=== PATIENT | female | born 1965 | race Caucasian/White ===

== ENCOUNTER 2025-02-04 08:16 | Outpatient (CLI) | payer OTHER, SELFPAY ==
--- NOTE | ~2025-02-04 | MR_ITS ---
MRI of the right shoulder Technique: Axial proton-density fat-sat images, coronal proton density fat-sat and T2 fat-sat images, and sagittal T1-weighted and T2 fat-sat images were acquired. Clinical History: Pain Findings: There is moderate AC joint degenerative change. Coracoclavicular, coracoacromial, and corac ohumeral ligaments appear intact. Supraspinatus and infraspinatus tendons are intact with moderate to advanced tendinosis. Subscapulari s tendon is intact, with mild tendinosis. Tendon of long head of the biceps is intact. There is probable degenerative superior labral tear, probably extending to the anterosuperior portion . Inferior glenohumeral ligament is intact. No degenerative change or effusion of the glenohumeral join t. There is minimal fluid in the subacromial/subdeltoid bursa. No muscle atrophy or edema. Impression: Probable degenerative superior labral tear extending to the anterosuperior portion. Rotator cuff tendinosis without evidence of tear. Mild subacromial/subdeltoid bursitis. Moderate AC joint degenerative change. Reviewed, dictated and finalized at [facility]. Impression: Probable degenerative superior labral tear extending to the anterosuperior port ion. Rotator cuff tendinosis without evidence of tear. Mild subacromial/subdeltoid bursitis. Moderate AC joint degenerative change.
== END 2025-02-04 08:17 | disposition home or self-care (01) ==
PROVIDERS: Visit Provider Physician Assistant
DX: M19.011 Primary osteoarthritis, right shoulder (principal); M75.31 Calcific tendinitis of right shoulder; M75.51 Bursitis of right shoulder
CPT/HCPCS: 73221